=== PATIENT | female | born 1950 | race Caucasian/White ===

== ENCOUNTER 2019-06-04 19:12 | Emergency (ER) | payer MEDICAID ==
[~2019-06-04] VITALS: Ht 152.4 cm; Wt 64.9 kg
[2019-06-04 19:25] VITALS: Ht 152.4 cm; Wt 64.9 kg
[2019-06-04 22:20] VITALS: BP 165/68
== END 2019-06-04 22:20 | disposition home or self-care (01) ==
LOC: ED 19:12 → EDBD 19:12 → ED 22:20
DX: S41.151A Open bite of right upper arm, initial encounter (principal); W54.0XXA Bitten by dog, initial encounter; Y93.89 Activity, other specified; Y92.89 Other specified places as the place of occurrence of the external cause; Y99.8 Other external cause status
CPT/HCPCS: 90715; J2001